=== PATIENT | male | born 1995 | race Two or more races ===

== ENCOUNTER 2018-03-13 23:18 | Emergency (ER) | payer OTHER ==
[~2018-03-13] VITALS: Ht 167.6 cm; Wt 72.6 kg
[2018-03-13 23:24] VITALS: BP 108/70
[2018-03-13] MEDS ORDERED: LIDOCAINE HCL/PF 1% 30 ML SDV ONE (23:58)
[2018-03-14] MEDS ORDERED: TDAP [DIPH/PERTUSSIS/TET] 0.5 ML VIAL IM ONE ×2 (00:51)
== END 2018-03-14 01:05 | disposition home or self-care (01) ==
LOC: ER 23:20
DX: S61.211A Laceration without foreign body of left index finger without damage to nail, initial encounter (principal); W27.8XXA Contact with other nonpowered hand tool, initial encounter; Y93.89 Activity, other specified; Y92.89 Other specified places as the place of occurrence of the external cause; Y99.0 Civilian activity done for income or pay
CPT/HCPCS: 90715; A4606; A6402; J3490; Z7610

== ENCOUNTER 2018-03-15 15:23 | Emergency (ER) | payer OTHER ==
[~2018-03-15] VITALS: Ht 167.6 cm; Wt 72.6 kg
[2018-03-15 15:23] VITALS: BP 137/75
== END 2018-03-15 15:58 | disposition home or self-care (01) ==
LOC: ER 15:26
DX: S61.211D Laceration without foreign body of left index finger without damage to nail, subsequent encounter (principal); W26.8XXD Contact with other sharp object(s), not elsewhere classified, subsequent encounter
CPT/HCPCS: 99281; A4606; Z7610; Z7502